=== PATIENT | male | born 1955 | race Caucasian/White ===

== ENCOUNTER 2017-04-01 08:29 | Inpatient (IN) | payer MEDICARE, BC ==
[~2017-04-01] VITALS: Ht 177.8 cm; Wt 86.4 kg
[~2017-04-01 08:29] MED LIST: ASPI-515 PO; ATOR20TA PO; CLON1TAB PO; CLOP75TA52 PO; HYDR1TAB14 PO; METF1000 PO; METF500T PO; METO50TA82 PO; OMEG1CAP2 PO; OXYC10TA47 PO; TAMS-11
[2017-04-01] MEDS ORDERED: SODIUM CHLORIDE FLUSH 10ML SYR IVF ONE (09:00)
[2017-04-01 09:18] LABS: HEMATOCRIT 40.6 % (39.2-51.8); HEMOGLOBIN 13.6 g/dL (13.7-18.0); WHITE BLOOD COUNT 7.6 x10^3/uL (3.4-10)
[2017-04-01] MEDS ORDERED: NITROGLYCERIN SINGLE TAB 0.4 MG SL ONE ×2 (09:22→09:37)
[2017-04-01] MEDS ORDERED: ASPIRIN 81 MG TABLET CHEW ONE (09:22)
[2017-04-01] MEDS: NITROGLYCERIN SINGLE TAB 0.4 MG SL PRN ×2 (09:24→09:38)
[2017-04-01 09:29] LABS: BLOOD UREA NITROGEN 9 mg/dL (7-18)
[2017-04-01] MEDS ORDERED: ASPIRIN 81 MG TABLET CHEW PO ONE (09:30)
[2017-04-01 09:33] LABS: IS PT STATUS REG ER OR PRE ER? YES
[2017-04-01] MEDS ORDERED: ONDANSETRON 2MG/ML, 2ML ONE (09:58)
[2017-04-01] MEDS ORDERED: SODIUM CHLORIDE 0.9% 1,000ML IVBOLUS ONE (10:30)
[2017-04-01] MEDS ORDERED: MORPHINE SULFATE 4 MG/ML, 1ML ONE (10:36)
[2017-04-01] MEDS: MORPHINE SULFATE 4 MG/ML, 1ML IVPush PRN ×3 (10:40→13:05)
[2017-04-01] MEDS ORDERED: ACETAMINOPHEN HOMEMEDPO PRN (11:30)
[2017-04-01] MEDS ORDERED: POLYETHYLENE GLYCOL 17 GM PACKET PO PRN (11:30)
[2017-04-01] MEDS ORDERED: HYDROCODONE BIT HOMEMEDPO PRN (11:30)
[2017-04-01] MEDS ORDERED: hydrALAzine 20 MG/ML, 1ML IVPush PRN (11:30)
[2017-04-01] MEDS ORDERED: [UNRECOGNIZED DRUG - OTHER] HOMEMEDPO PRN (11:30)
[2017-04-01] MEDS ORDERED: BISACODYL 10 MG SUPP PR PRN (11:30)
[2017-04-01] MEDS ORDERED: ACETAMINOPHEN 325 MG TABLET PO PRN (11:30)
[2017-04-01] MEDS ORDERED: ENALAPRILAT 1.25 MG/ML, 2ML IVPush PRN (11:30)
[2017-04-01] MEDS ORDERED: ONDANSETRON 2MG/ML, 2ML IVPush PRN (11:30)
[2017-04-01] MEDS ORDERED: MAGNESIUM SULFATE PMX 2GM/50ML 50 ML IV ONE (12:00)
[2017-04-01 12:31] VITALS: BP 120/79
[2017-04-01] MEDS: OXYcodone IR 5MG TABLET PO PRN ×2 (12:52→21:25)
[2017-04-01] MEDS: CEFTRIAXONE PMX 1GM/50ML 50 ML IV SCH (13:06)
[2017-04-01] MEDS: HEPARIN 5,000 UNITS/ML, 1ML SQ SCH ×2 (13:07→21:29)
[2017-04-01] MEDS: TAMSULOSIN 0.4 MG CAP.ER.24H PO SCH (13:07)
[2017-04-01] MEDS: CLOPIDOGREL 75 MG TABLET PO SCH (13:07)
[2017-04-01] MEDS: METOPROLOL TARTRATE 50 MG TABLET PO SCH (13:07)
[2017-04-01] MEDS: DOXYCYCLINE 100 MG in DEXTROSE 5% 250 ML IV SCH (14:19)
[2017-04-01] MEDS: morphine SULFATE 10 MG/ML, 1ML IVPush PRN ×3 (14:34→23:30)
[2017-04-01] MEDS: OMEGA-3/FISH OIL CAPSULE PO SCH ×2 (16:21→21:25)
[2017-04-01] MEDS: INSULIN ASPART 100 UNITS/ML, PEN SQ-INSULIN SCH ×2 (16:22→21:00)
[2017-04-01 17:45] LABS: IS PT STATUS REG ER OR PRE ER? NO
[2017-04-01 19:16] VITALS: BP 104/67
[2017-04-01] MEDS ORDERED: ATORVASTATIN 20 MG TABLET PO SCH (21:00)
[2017-04-01] MEDS: SODIUM CHLORIDE 0.9% 1,000 ML IV SCH (21:24)
[2017-04-01 23:41] LABS: IS PT STATUS REG ER OR PRE ER? NO
[2017-04-02 00:57] VITALS: BP 107/73
[2017-04-02] MEDS: DOXYCYCLINE 100 MG in DEXTROSE 5% 250 ML IV SCH ×2 (02:13→13:21)
[2017-04-02] MEDS: morphine SULFATE 10 MG/ML, 1ML IVPush PRN ×7 (03:00→20:14)
[2017-04-02] MEDS: HEPARIN 5,000 UNITS/ML, 1ML SQ SCH ×3 (05:00→22:27)
[2017-04-02 05:44] LABS: HEMATOCRIT 35.9 % (39.2-51.8); WHITE BLOOD COUNT 5.9 x10^3/uL (3.4-10)
[2017-04-02 06:07] LABS: ASPARTATE AMINO TRANSFERASE 18 U/L (15-37); BLOOD UREA NITROGEN 12 mg/dL (7-18)
[2017-04-02] MEDS: INSULIN ASPART 100 UNITS/ML, PEN SQ-INSULIN SCH ×4 (07:00→20:21)
[2017-04-02 07:56] VITALS: BP 125/84
[2017-04-02] MEDS: TAMSULOSIN 0.4 MG CAP.ER.24H PO SCH (08:19)
[2017-04-02] MEDS: SENNA/DOCUSATE TABLET PO SCH (08:19)
[2017-04-02] MEDS: OMEGA-3/FISH OIL CAPSULE PO SCH ×3 (08:19→20:15)
[2017-04-02] MEDS: METOPROLOL TARTRATE 50 MG TABLET PO SCH (08:19)
[2017-04-02] MEDS: OXYcodone IR 5MG TABLET PO PRN ×2 (08:19→22:23)
[2017-04-02] MEDS: SODIUM CHLORIDE 0.9% 1,000 ML IV SCH (08:20)
[2017-04-02] MEDS: CLOPIDOGREL 75 MG TABLET PO SCH (08:22)
[2017-04-02] MEDS ORDERED: ASPIRIN 81 MG TABLET EC PO SCH (09:00)
[2017-04-02] MEDS: CEFTRIAXONE PMX 1GM/50ML 50 ML IV SCH (10:33)
[2017-04-02 13:06] VITALS: BP 114/73
[2017-04-02] MEDS ORDERED: POLYETHYLENE GLYCOL 17 GM PACKET PO PRN (19:30)
[2017-04-02] MEDS ORDERED: hydrALAzine 20 MG/ML, 1ML IVPush PRN (19:30)
[2017-04-02] MEDS ORDERED: ENALAPRILAT 1.25 MG/ML, 2ML IVPush PRN (19:30)
[2017-04-02] MEDS ORDERED: ONDANSETRON 2MG/ML, 2ML IVPush PRN (19:30)
[2017-04-02] MEDS ORDERED: BISACODYL 10 MG SUPP PR PRN (19:30)
[2017-04-02] MEDS ORDERED: ACETAMINOPHEN 325 MG TABLET PO PRN (19:30)
[2017-04-02 20:00] VITALS: BP 120/85
[2017-04-02] MEDS ORDERED: ATORVASTATIN 20 MG TABLET PO SCH (21:00)
[2017-04-03] MEDS: morphine SULFATE 10 MG/ML, 1ML IVPush PRN ×3 (00:07→07:59)
[2017-04-03] MEDS: DOXYCYCLINE 100 MG in DEXTROSE 5% 250 ML IV SCH (02:18)
[2017-04-03 02:23] VITALS: BP 114/74
[2017-04-03] MEDS: OXYcodone IR 5MG TABLET PO PRN (04:08)
[2017-04-03] MEDS ORDERED: ASPIRIN 81 MG TABLET EC PO SCH (06:00)
[2017-04-03 07:06] VITALS: BP 118/74
[2017-04-03] MEDS: INSULIN ASPART 100 UNITS/ML, PEN SQ-INSULIN SCH (07:52)
[2017-04-03] MEDS: TAMSULOSIN 0.4 MG CAP.ER.24H PO SCH (07:53)
[2017-04-03] MEDS: OMEGA-3/FISH OIL CAPSULE PO SCH (07:56)
[2017-04-03] MEDS: HEPARIN 5,000 UNITS/ML, 1ML SQ SCH (07:56)
[2017-04-03] MEDS: SENNA/DOCUSATE TABLET PO SCH (07:56)
[2017-04-03] MEDS ORDERED: CLOPIDOGREL 75 MG TABLET PO SCH (09:00)
== END 2017-04-03 10:25 | disposition left against medical advice (07) | DRG 205 ==
LOC: ED 09:30 → EDIP 10:21 → 5SO 12:21
PROVIDERS: ADMIT Family Medicine; ATTEND Family Medicine
DX: M94.0 Chondrocostal junction syndrome [Tietze] (principal); J18.9 Pneumonia, unspecified organism; I10 Essential (primary) hypertension; F32.9 Major depressive disorder, single episode, unspecified; E11.9 Type 2 diabetes mellitus without complications; D64.9 Anemia, unspecified; I48.0 Paroxysmal atrial fibrillation; R07.9 Chest pain, unspecified; I25.2 Old myocardial infarction; I25.10 Atherosclerotic heart disease of native coronary artery without angina pectoris; E78.5 Hyperlipidemia, unspecified; F17.210 Nicotine dependence, cigarettes, uncomplicated; E78.00 Pure hypercholesterolemia, unspecified; Z53.21 Procedure and treatment not carried out due to patient leaving prior to being seen by health care provider; F41.9 Anxiety disorder, unspecified; N40.0 Benign prostatic hyperplasia without lower urinary tract symptoms; Z79.82 Long term (current) use of aspirin; Z82.3 Family history of stroke; Z82.49 Family history of ischemic heart disease and other diseases of the circulatory system; Z95.5 Presence of coronary angioplasty implant and graft
CPT/HCPCS: 36415; 71010; 78452; 80048; 80053; 80061; 81001; 82040; 82962; 83036; 83735; 84439; 84443; 84484; 85025; 87040; 87086; 93005; J0696; J1644; J1815; J2405; J7060; A9502; C9898; J2270; J3475; J7030

== ENCOUNTER 2017-04-04 08:37 | Emergency (ER) | payer MEDICARE, BC ==
[~2017-04-04] VITALS: Ht 177.8 cm; Wt 87.0 kg
[2017-04-04] MEDS ORDERED: LORazepam 1MG TABLET PO ONE (09:30)
[2017-04-04] MEDS ORDERED: LORazepam 1MG TABLET ONE (09:35)
[2017-04-04 09:39] VITALS: BP 104/59
== END 2017-04-04 10:33 | disposition home or self-care (01) ==
LOC: ED 09:12
DX: F10.129 Alcohol abuse with intoxication, unspecified (principal); F19.10 Other psychoactive substance abuse, uncomplicated; E11.9 Type 2 diabetes mellitus without complications; E78.00 Pure hypercholesterolemia, unspecified; I10 Essential (primary) hypertension; I25.10 Atherosclerotic heart disease of native coronary artery without angina pectoris
CPT/HCPCS: 99283

== ENCOUNTER 2017-12-29 18:27 | Observation (INO) | payer MEDICARE, BC ==
[~2017-12-29] VITALS: Ht 177.8 cm; Wt 84.4 kg
[2017-12-29] MEDS ORDERED: SODIUM CHLORIDE FLUSH 10ML SYR IVF ONE (19:00)
[2017-12-29 19:15] LABS: BASOPHILS # (AUTO) 0.02 x10^3/uL (0-0.1); BASOPHILS % (AUTO) 0 % (0-1); EOSINOPHILS # (AUTO) 0.23 x10^3/uL (0-0.4); EOSINOPHILS % (AUTO) 4 % (1-7); LYMPHOCYTES % (AUTO) 22 % (22-44); MD NO; MEAN CORPUSCULAR HEMOGLOBIN 31.1 pg (27.5-34.5); MEAN CORPUSCULAR HGB CONC 33.5 g/dL (33.2-36.2); MEAN CORPUSCULAR VOLUME 92.9 fL (81-97); MEAN PLATELET VOLUME 8.5 fL (7.4-10.4); MONOCYTES % (AUTO) 5 % (2-9); NEUTROPHILS # (AUTO) 3.86 x10^3/uL (1.8-6.8); NEUTROPHILS % (AUTO) 69 % (42-75); PLATELET COUNT 223 x10^3/uL (130-400); RED BLOOD COUNT 3.82 x10^6/uL (4.38-5.82)
[2017-12-29 19:22] LABS: INTERNATIONAL NORMALIZED RATIO 1.04 (0.93-1.1); PROTHROMBIN TIME 10.8 Seconds (9.6-11.5)
[2017-12-29 19:26] LABS: ALBUMIN 3.6 g/dL (3.4-5.0); ANION GAP 9 mmol/L (5-15); CALCIUM 8.8 mg/dL (8.5-10.1); CHLORIDE 104 mmol/L (98-107); CREATININE 0.98 mg/dL (0.7-1.3)
[2017-12-29 19:30] LABS: TROPONIN I < 0.015 ng/mL (0.000-0.045)
[2017-12-29 21:07] VITALS: BP 93/61
[2017-12-29] MEDS ORDERED: QUET200T4 PO (21:11)
[2017-12-29] MEDS ORDERED: ZOLP5TAB PO (21:11)
[2017-12-29 21:12] VITALS: BP 93/61
[2017-12-29] MEDS ORDERED: ENALAPRILAT 1.25 MG/ML, 2ML IVPush PRN (22:30)
[2017-12-29] MEDS ORDERED: BISACODYL 10 MG SUPP PR PRN (22:30)
[2017-12-29] MEDS ORDERED: DOCUSATE 100 MG CAPSULE PO PRN (22:30)
[2017-12-29] MEDS ORDERED: POLYETHYLENE GLYCOL 17 GM PACKET PO PRN (22:30)
[2017-12-29] MEDS ORDERED: ONDANSETRON 2MG/ML, 2ML IVPush PRN (22:30)
[2017-12-29] MEDS ORDERED: morphine SULFATE 10 MG/ML, 1ML IVPush PRN (22:30)
[2017-12-29] MEDS ORDERED: ACETAMINOPHEN 325 MG TABLET PO PRN (22:30)
[2017-12-29] MEDS ORDERED: ONDANSETRON ODT 4 MG PO PRN (22:30)
[2017-12-29] MEDS ORDERED: ZOLPIDEM 10MG TABLET PO PRN (22:30)
[2017-12-29] MEDS ORDERED: QUETIAPINE 200 MG TABLET PO PRN (22:30)
[2017-12-29] MEDS ORDERED: DEXTROSE 4 GM TAB.CHEW PO PRN (22:30)
[2017-12-29] MEDS ORDERED: GLUCAGON 1 MG IM PRN (22:30)
[2017-12-29] MEDS ORDERED: DEXTROSE 50%, 50ML SYRINGE IVPush PRN (22:30)
[2017-12-29] MEDS ORDERED: POTASSIUM CHLORIDE 20 MEQ TAB.ER.PRT PO ONE (23:00)
[2017-12-30 01:29] LABS: TROPONIN I < 0.015 ng/mL (0.000-0.045)
[2017-12-30 02:00] VITALS: BP 106/70
[2017-12-30] MEDS: INSULIN LISPRO 100 UNITS/ML, PEN SQ-INSULIN SCH ×3 (07:00→16:00)
[2017-12-30 07:13] LABS: CHOLESTEROL, TOTAL 105 mg/dL (140-239); TRIGLYCERIDES 117 mg/dL (50-200); VLDL CHOLESTEROL 23 mg/dL (0-25)
[2017-12-30 07:15] LABS: CHOL/HDL RATIO 2.8; HDL CHOL % 36 % (26-37); HDL CHOLESTEROL (DIRECT) 38 mg/dL (40-60)
[2017-12-30 07:16] LABS: LDL CHOLESTEROL,CALCULATED 44 mg/dL (54-169); LDL/HDL RATIO 1.2 (0.5-3.0); TROPONIN I < 0.015 ng/mL (0.000-0.045)
[2017-12-30] MEDS ORDERED: TAMSULOSIN 0.4 MG CAP.ER.24H PO SCH (09:00)
[2017-12-30] MEDS ORDERED: METOPROLOL TARTRATE 25 MG TABLET PO SCH (09:00)
[2017-12-30] MEDS ORDERED: SODIUM CHLORIDE FLUSH 10ML SYR IVF SCH (09:00)
[2017-12-30] MEDS ORDERED: ASPIRIN 81 MG TABLET EC PO SCH (09:00)
[2017-12-30] MEDS ORDERED: CLOPIDOGREL 75 MG TABLET PO SCH (09:00)
[2017-12-30] MEDS: OMEGA-3/FISH OIL CAPSULE PO SCH ×2 (09:00→16:00)
[2017-12-30 09:10] VITALS: BP 106/66
[2017-12-30] MEDS ORDERED: REGADENOSON 0.4 MG/5 ML SYRINGE ONE (11:35)
[2017-12-30 13:30] VITALS: BP 127/85
[2017-12-30] MEDS ORDERED: ATORVASTATIN 20 MG TABLET PO SCH (21:00)
== END 2017-12-30 18:13 | disposition home or self-care (01) ==
LOC: ED 20:53 → INTOOBSV 20:54 → 5SO 20:54
PROVIDERS: ADMIT Internal Medicine; ATTEND Internal Medicine
DX: R07.89 Other chest pain (principal); E78.00 Pure hypercholesterolemia, unspecified; I10 Essential (primary) hypertension; N40.0 Benign prostatic hyperplasia without lower urinary tract symptoms; I25.10 Atherosclerotic heart disease of native coronary artery without angina pectoris; I48.91 Unspecified atrial fibrillation; E11.9 Type 2 diabetes mellitus without complications; E78.5 Hyperlipidemia, unspecified; E87.6 Hypokalemia; Z79.899 Other long term (current) drug therapy
CPT/HCPCS: 36415; 71045; 78452; 80048; 80061; 80307; 82040; 82962; 83880; 84484; 85025; 85379; 85610; 93005; 93017; 93306; 99285; A9502; C9898; G0378; J2785